=== PATIENT | male | born 1955 | race Caucasian/White ===

== ENCOUNTER → 2021-05-04 10:59 | Outpatient (CLI) | payer OTHER, BC, SELFPAY ==
--- NOTE | ~2021-05-04 | MR_ITS ---
EXAMINATION: MR knee LT wo con DATE: 05/04/2021 14:29 INDICATION: Left knee pain TECHNIQUE: Magnetic resonance imaging (MRI) of the left knee was performed without intravenous contra st. Sequences included coronal PD-weighted FSE, coronal PD-weighted FS FSE, sagittal T2-weighted FSE , sagittal PD-weighted FS FSE and axial PD weighted fat saturated FSE. COMPARISON: None. FINDINGS: Medial compartment: Complex tear of the body and posterior horn of the medial meniscus with medial extrusion of the small meniscal body. Deep chondral ulceration with underlying mild cortical irregularity and prominent sub articular edema-like signal changes at the anterior to central weightbearing medial femoral condyle a nd along the anteromedial aspect of the medial tibial plateau. Less severe partial thickness cartilag e loss with chondral surface regular date along the more posterior medial tibial plateau and weightbe aring medial femoral condyle. There is a region of subarticular cystic change and marginal osteophyte formation along the anteromedial rim of the medial tibial plateau. Lateral compartment: Lateral meniscus is normal. Articular cartilage is normal. Patellofemoral compartment: Deep chondral ulceration along the medial patellar facet with small focus of underlying subarticular edema-like increased marrow signal. Similar deep chondral ulceration with mild cortical irregularity along the medial margin of the medial trochlea. Ligaments and tendons: Anterior and posterior cruciate ligaments are normal. Thickening and increased signal of the proximal medial collateral ligament with soft tissue edema along the deep and superficial margin of the ligam ent consistent with recent moderate grade sprain/partial tear. The fibular collateral ligament comple x is normal. Moderate distal quadriceps tendinopathy with linear fluid signal aligned along the fiber s of the distal tendon consistent with likely longitudinal split tearing. Mild patellar tendinopathy. The visualized medial and lateral hamstring tendons as well as the iliotibial band are normal. Fluid: Small left knee joint effusion. No loose osteochondral bodies identified. Small Phillips's cyst. Osseous/other: Bone alignment is normal. No fracture or pathologic marrow replacing process. IMPRESSION: 1. Complex medial meniscal tear. 2. Tricompartmental osteoarthritis, severe with high-grade chondromalacia extensive high-grade chondr omalacia and mild in the patellofemoral compartment with smaller regions of medial sided moderate to high-grade chondromalacia. 3. Moderate grade sprain/partial tear of the proximal medial collateral ligament. 4. Tendinopathy of the extensor mechanism, moderate at the distal quadriceps tendon and mild at the p atellar tendon. 5. Small left knee joint effusion with small Phillips's cyst. Reviewed, dictated and finalized at location [facility]. [facility] [employer] IMPRESSION: 1. Complex medial meniscal tear. 2. Tricompartmental osteoarthritis, severe with high-grade chondromalacia exten sive high-grade chondromalacia and mild in the patellofemoral compartment with smaller regions of medial sided moderate to high-grade chondromalacia. 3. Moderate grade sprain/partial tear of the proximal medial collateral ligamen t. 4. Tendinopathy of the extensor mechanism, moderate at the distal quadriceps te ndon and mild at the patellar tendon. 5. Small left knee joint effusion with small Phillips's cyst.
== END ==
PROVIDERS: Visit Provider Nurse Practitioner Family
DX: M25.562 Pain in left knee (principal); S83.232A Complex tear of medial meniscus, current injury, left knee, initial encounter; M17.12 Unilateral primary osteoarthritis, left knee; M22.42 Chondromalacia patellae, left knee; S83.412A Sprain of medial collateral ligament of left knee, initial encounter; M76.52 Patellar tendinitis, left knee; M25.462 Effusion, left knee; M71.22 Synovial cyst of popliteal space [Baker], left knee
CPT/HCPCS: 73721

== ENCOUNTER → 2021-08-09 12:37 | Outpatient (CLI) | payer BC, SELFPAY ==
--- NOTE | ~2021-08-09 | US_ITS ---
US venous doppler [facility] DATE: 08/09/2021 13:06 INDICATION: Left leg pain and swelling TECHNIQUE: Real-time and color flow imaging and Doppler analysis COMPARISON: 05/14/2021 left knee MRI FINDINGS: There is spontaneous and phasic flow and normal augmentation and color flow signal and norm al compression of the deep veins of the left lower extremity, with no evidence of deep venous thrombo sis. Small popliteal cyst is noted. IMPRESSION: No evidence of deep venous thrombosis Small left popliteal cyst Reviewed, dictated and finalized at [facility]. Reviewed, dictated and finalized at location A.
== END ==
PROVIDERS: PCP Internal Medicine; Visit Provider Nurse Practitioner
DX: M79.662 Pain in left lower leg (principal); M71.22 Synovial cyst of popliteal space [Baker], left knee
CPT/HCPCS: 93971